=== PATIENT | female | born 1990 | race Two or more races ===

== ENCOUNTER 2017-03-15 16:55 | Observation (INO) | payer SELFPAY ==
[2017-03-15] MEDS ORDERED: PREN-96 PO (17:54)
== END 2017-03-15 17:38 | disposition home or self-care (01) | DRG 781 ==
LOC: LDRP 16:55
PROVIDERS: ADMIT Specialist; ATTEND Specialist
DX: O21.2 Late vomiting of pregnancy (principal); O26.893 Other specified pregnancy related conditions, third trimester; R42 Dizziness and giddiness; Z3A.30 30 weeks gestation of pregnancy
CPT/HCPCS: 59025; 81002; 82948; G0378

== ENCOUNTER 2024-08-26 10:41 | Inpatient (IN) | payer MEDICAID ==
[~2024-08-26] VITALS: Ht 149.9 cm; Wt 45.6 kg
[~2024-08-26 10:41] MED LIST: PREN-96 PO
--- NOTE | 2024-08-26 11:26 | ED.PDOC ---
General HPI Comments 33-year-old female who comes in with chief complaint of left lower quadrant pain. The patient was states that the pain started at 5:00 a.m. this morning. The pain is in the left flank area. The patient does have a history of kidney infections in the past and she states that the pain feels somewhat similar. At this time she states that the pain is an 8/10. It was associated with nausea as well as vomiting, diarrhea and chills. She was able to ambulate into the emergency department's without any difficulty. Chief Complaint: Abdominal Pain Time Seen by MD: 10:46 Reviewed notes: Nurses Notes, Medications, Allergies (No allergies) Allergies: Coded Allergies: NO KNOWN ALLERGIES (Unverified , 08/26/24) Home Meds Reported Medications Vit W/ Ferrous Fumara ( One Daily) Daily Tab, 1 TAB PO DAILY, #90 TAB 3 Refills 03/15/17 Information Source: Patient Mode of Arrival: Ambulatory Severity: Moderate Inability to void: None Timing: Hours (Started at 5:00 a.m. this morning) Duration: Since onset Prehospital treatment: None Onset: Spontaneous Symptoms: Hematuria History of: Other (History of pyelonephritis) Location: (L)Flank associated signs and symptoms: Abdominal Pain, Nausea, Vomiting, Hematuria, Other (Diarrhea) Past Medical History PAST MEDICAL HISTORY: Anemia Surgical History: Denies all surgeries MARGIN TRIMMER History: No Pertinent MARGIN TRIMMER History Family History Family History: Family hx of DM Social History Smoker: Non-Smoker Alcohol: Denies ETOH Use Drugs: Marijuana Lives In: Home Constitutional: denies: chills, diaphoresis, fatigue, fever, malaise, sweats, weakness, others EENTM: denies: blurred vision, double vision, ear bleeding, ear discharge, ear drainage, ear pain, ear ringing, eye pain, eye redness, hearing loss, mouth pain, mouth swelling, nasal discharge, nose bleeding, nose congestion, nose pain, photophobia, tearing, throat pain, throat swelling, voice changes, others Respiratory: denies: cough, hemoptysis, orthopnea, SOB at rest, shortness of breath, SOB with excertion, stridor, wheezing, others Cardiovascular: denies: chest pain, dizzy spells, diaphoresis, Dyspnea on exertion, edema, irregular heart beat, left arm pain, lightheadedness, palpitations, PND, syncope, others Gastrointestinal: reports: abdominal pain, diarrhea, nausea, vomiting; denies: abdomen distended, blood streaked bowels, constipated, dysphagia, difficulty swallowing, hematemesis, melena, poor appetite, poor fluid intake, rectal bleeding, rectal pain, others Genitourinary: reports: flank pain (Flank pain); denies: abnormal vagina bleeding, burning, dyspareunia, dysuria, frequency, hematuria, incontinence, pain, , vagina discharge, urgency, others Neurological: denies: dizziness, fainting, headache, left sided numbness, left sided weakness, numbness, paresthesia, pre-existing deficit, right sided numbness, right sided weakness, seizure, speech problems, tingling, tremors, weakness, others Musculoskeletal: denies: back pain, gout, joint pain, joint swelling, muscle pain, muscle stiffness, neck pain, others Integumetry: denies: bruises, change in color, change in hair/nails, dryness, laceration, lesions, lumps, rash, wounds, others Allergic/Immunocompromised: denies: Difficulty Healing, Frequent Infections, Hives, Itching, others Hematologic/Lymphatic: denies: anemia, blood clots, easy bleeding, easy bruis ing, swollen glands, others Endocrine: denies: excessive hunger, excessive sweating, excessive thirst, exc essive urination, flushing, intolerance to cold, intolerance to heat, unexplained weight gain, unexplained weight loss, others Psychiatric: denies: anxiety, bipolar disorder, depression, hopeless, panic disorder, schizophrenia, sleepless, suicidal, others Physical Exam General Appearance: Moderate Distress HEENT: Normal ENT Inspection, Pharynx Normal, TMs Normal Neck: Full Range of Motion, Non-Tender, Normal, Normal Inspection Respiratory: Chest Non-Tender, Lungs Clear, No Accessory Muscle Use, No Respiratory Distress, Normal Breath Sounds Cardiovascular: No Edema, No JVD, No Murmur, No Gallop, Normal Peripheral Puls es, Regular Rate/Rhythm Breast Exam: Deferred Gastrointestinal: LLQ, No Organomegaly, No Pulsatile Mass, Normal Bowel Sounds, Soft, Tenderness Genitalia: Deferred Pelvic: Deferred Rectal: Deferred Extremities: No calf tenderness, Normal capillary refill, Normal inspection, Normal range of motion, Non-tender, No pedal edema Musculoskeletal : Apperance: Normal Neurologic: Alert, marketing services specialist II-XII nml as Tested, No Motor Deficits, Normal Affect, Normal Mood, No Sensory Deficits Cerebellar Function: Normal Reflexes: Normal Skin: Dry, Normal Color, Warm Lymphatic: No Adenopathy Was a procedure done? Was a procedure done?: No Differential Diagnosis Kidney stone (Female): Pancreatitis, Pyelonephritis, Renal failure, Strain X-Ray, Labs, Meds, VS Vital Signs Date Time Temp Pulse Resp B/P (MAP) Pulse Ox O2 Delivery O2 Flow Rate FiO2 08/26/24 14:00 98.6 57 18 89/49 (62) 98 98.6 08/26/24 12:09 89 20 110/60 08/26/24 11:47 98.6 89 18 121/78 (92) 96 98.6 08/26/24 11:35 89 18 121/78 08/26/24 11:29 89 18 96 Room Air* 0 21 08/26/24 10:56 98.5 101 18 97/64 (75) 96 Lab Test 08/26/24 11:12 08/26/24 11:00 Range/Units White Blood Count 11.1 H 4.4-10.8 10^3/uL Red Blood Count 4.55 4.0-5.20 10^6/uL Hemoglobin 14.8 12.2-16.2 g/dL Hematocrit 43.4 36.0-46.0 % Mean Corpuscular Volume 95.4 80.0-100.0 fL Mean Corpuscular Hemoglobin 32.4 H 28.0-32.0 pg Mean Corpuscular Hemoglobin Concent 34.0 32.0-36.0 g/dL Red Cell Distribution Width 14.1 11.8-14.3 % Platelet Count 414 140-450 10^3/uL Mean Platelet Volume 8.4 6.9-10.8 fL Neutrophils (%) (Auto) 76.9 37.0-80.0 % Lymphocytes (%) (Auto) 16.3 10.0-50.0 % Monocytes (%) (Auto) 5.8 0.0-12.0 % Eosinophils (%) (Auto) 0.4 0.0-7.0 % Basophils (%) (Auto) 0.6 0.0-2.0 % Neutrophils # (Auto) 8.6 1.6-8.6 10 ^3/uL Lymphocytes # (Auto) 1.8 0.4-5.4 10 ^3/uL Monocytes # (Auto) 0.6 0-1.3 10 ^3/uL Eosinophils # (Auto) 0 0-0.8 10 ^3/uL Basophils # (Auto) 0.1 0-0.2 10 ^3/uL Nucleated Red Blood Cells 0.0 % Sodium Level 137 136-145 mmol/L Potassium Level 4.1 3.5-5.1 mmol/L Chloride Level 106 98-107 mmol/L Carbon Dioxide Level 24 20-31 mmol/L Anion Gap 7 5-15 Blood Urea Nitrogen 8 L 9-23 mg/dL Creatinine 0.98 0.550-1.02 mg/dL Glomerular Filtration Rate Calc 78 >90 mL/min BUN/Creatinine Ratio 8.2 L 10.0-20.0 Serum Glucose 120 H 74-106 mg/dL Calcium Level 10.0 8.7-10.4 mg/dL Total Bilirubin 0.4 0.2-1.0 mg/dL Aspartate Amino Transferase (AST) 13 13-40 U/L Alanine Aminotransferase (ALT) < 9 7-40 U/L Alkaline Phosphatase 84 46-116 U/L Total Protein 7.7 5.7-8.2 g/dL Albumin 4.7 3.2-4.8 g/dL Lipase 30 12-53 U/L Urine Color Light-orange Yellow Urine Clarity Turbid H Clear Urine pH 6.0 5.0-9.0 Urine Specific [place] 1.024 1.001-1.035 Urine Protein 1+ H Negative Urine Ketones Trace Negative Urine Blood 3+ H Negative /uL Urine Nitrite Negative Negative Urine Bilirubin Negative Negative Urine Urobilinogen Normal Negative mg/dL Urine Leukocyte Esterase 2+ Negative /uL Urine RBC 4356 0 - 4 /hpf Urine Microscopic WBC 53 H 0-5 /HPF Urine Squamous Epithelial Cells Mod <5 /hpf Urine Bacteria None seen None Seen /hpf Urine Mucus Few None Seen Urine Glucose Normal Normal mg/dL Urine Test Negative Negative Current Medications Medications (Trade) Dose Ordered Sig/Paty Route Start Time Stop Time Status Last Admin Ondansetron HCl (Zofran) 4 mg ONCE ONCE IV 08/26/24 11:15 08/26/24 11:16 DC 08/26/24 11:34 Sodium Chloride 1,000 ml @ 1,000 mls/hr Q1H ONCE IVB 08/26/24 11:15 08/26/24 12:14 DC 08/26/24 11:35 Morphine Sulfate 4 mg ONCE ONCE IV 08/26/24 11:15 08/26/24 11:16 DC 08/26/24 11:35 IV Hep-Lock was established The patient was given a 1 L bolus of normal saline The urine test is positive for a significant UTI There is a concern that this patient may have acute pyelonephritis. The patient's CBC shows an elevated white blood cell count of 11.[address] scan of the abdomen and pelvis shows: IMPRESSION: 1. Calculus in the bladder near the left UVJ associated with mild left hydronephrosis. Other punctate bilateral renal calculi noted. Urology evaluation is recommended. The patient received a 1 L bolus of normal saline The patient received morphine 4 mg IV push for pain The patient received Zofran 4 mg IV push for the nausea At this time, the patient will be admitted to the hospitalist Images Reviewed?: Images reviewed and evaluated by me Time of 1ST Reevaluation: 11:26 Reevaluation 1ST: Unchanged Patient Education/Counseling: Diagnosis, Treatment, Prognosis Family Education/Counseling: No Family Present Departure 1 Departure Time of Disposition: 14:39 Impression: Primary Impression: Acute pyelonephritis Additional Impressions: Ureteral calculi Intractable abdominal pain Disposition: ADMITTED INPATIENT Admit to: Med Surg Condition: Fair Critical Care Note Critical Care Time?: No Stability Stability form required: Yes Unstable for transfer: ED Physician Assesment (Clinical assesment) Heart Score Heart Score: Heart Score Response (Comments) Value History N/A 0 EKG N/A 0 Age N/A 0 Risk Factors N/A 0 Troponin N/A 0 Total 0 MACRINA NEWBERRY MD Aug 26, 2024 11:26
[2024-08-26 11:29] VITALS: PULSE 89; RESP 18; O2SAT 96
[2024-08-26] MEDS: ONDANSETRON HCL 4 MG/2 ML VIAL IV ONE (11:34)
[2024-08-26] MEDS: MORPHINE SULFATE 4 MG/ML SYR/VIAL IV ONE (11:35)
[2024-08-26] MEDS: SODIUM CHLORIDE 0.9% 1,000 ML IVB ONE (11:35)
[2024-08-26 11:44] LABS: Urine Bacteria None Seen /hpf (None Seen)
[2024-08-26 11:53] LABS: Basophils # (auto) 0.1 10 ^3/uL (0-0.2); Basophils % (auto) 0.6 % (0.0-2.0); Eosinophils # (auto) 0 10 ^3/uL (0-0.8); Eosinophils % (auto) 0.4 % (0.0-7.0); Hematocrit 43.4 % (36.0-46.0); Hemoglobin 14.8 g/dL (12.2-16.2); Lymphocytes # (auto) 1.8 10 ^3/uL (0.4-5.4); Lymphocytes % (auto) 16.3 % (10.0-50.0); Mean Corpuscular Hemoglobin 32.4 pg (28.0-32.0); Mean Corpuscular Volume 95.4 fL (80.0-100.0); Monocytes # (auto) 0.6 10 ^3/uL (0-1.3); Monocytes % (auto) 5.8 % (0.0-12.0); Neutrophils # (auto) 8.6 10 ^3/uL (1.6-8.6); Neutrophils % (auto) 76.9 % (37.0-80.0); Platelet Count (auto) 414 10^3/uL (140-450); Red Blood Cells 4.55 10^6/uL (4.0-5.20); Red Cell Distribution Width 14.1 % (11.8-14.3); White Blood Cell 11.1 10^3/uL (4.4-10.8)
[2024-08-26 12:11] LABS: Albumin 4.7 g/dL (3.2-4.8); Alkaline Phosphatase 84 U/L (46-116); Anion Gap 7 (5-15); Aspartate Aminotransferase 13 U/L (13-40); BUN/Creatinine Ratio 8.2 (10.0-20.0); Bilirubin, Total 0.4 mg/dL (0.2-1.0); Carbon Dioxide 24 mmol/L (20-31); Chloride 106 mmol/L (98-107); Lipase 30 U/L (12-53); Potassium 4.1 mmol/L (3.5-5.1); Sodium 137 mmol/L (136-145); Total Protein 7.7 g/dL (5.7-8.2)
[2024-08-26 12:25] LABS: Alanine Aminotransferase < 9 U/L (7-40); Blood Urea Nitrogen 8 mg/dL (9-23); Glucose 120 mg/dL (74-106)
[2024-08-26 12:36] LABS: Urine Blood 3+ /uL (Negative); Urine Clarity Turbid (Clear); Urine Color Light-Orange (Yellow); Urine Mucus FEW (None Seen); Urine Protein, UAD 1+ (Negative); Urine Specific Gravity 1.024 (1.001-1.035); Urine Squamous Epithelial Cell MOD /hpf (<5); Urine Urobilinogen Normal (Negative); Urine WBC 53 /HPF (0-5)
--- NOTE | 2024-08-26 13:21 | DVH ---
Exam: CT CT AB PEL WO CON-NO ORAL OR IV History: left sided pain Comparison Study: None Technique: Multidetector spiral CT of the abdomen and pelvis was performed from lung bases to pubic symphysis. Imaging was performed without IV contrast. Axial, coronal and sagittal multiplanar reform ats were obtained from the axial data set by the technologist. Radiation dose : Abdomen/Pelvis: CTDIvol 5.07 mGy, DLP 226.78 mGy*cm. Findings: Evaluation of solid organs is limited due to lack of intravenous contrast use. Lung Bases: No acute or significant lung base finding. Normal heart size. No pleural or pericardial effusion. Liver: The liver is normal in size. No focal lesions. Gallbladder and biliary Tree: Unremarkable Spleen: Unremarkable Pancreas: The pancreas is grossly normal in appearance. Adrenal Glands: Unremarkable Kidneys: Punctate bilateral renal calculi. Mild left hydronephrosis. Calculus in the bladder near t he left ureterovesicular junction. No right hydronephrosis. Bladder: Grossly unremarkable for degree of distention. Bowel: The stomach is grossly normal in appearance. Small bowel and colon are normal in caliber and d istribution. The appendix is not visualized; however, no secondary findings of acute appendicitis nayana ntified. Ascites: Absent Lymphadenopathy: No mesenteric, retroperitoneal or periportal lymphadenopathy. Abdominal wall and Mesentery: Unremarkable. Vasculature: The visualized abdominal aorta is normal in size and caliber. Evaluation of abdominal a nd pelvic vessels is limited due to lack of intravenous contrast. Pelvic Organs: Intrauterine device in place. Musculoskeletal: No aggressive focal bony lesions, acute fractures or dislocation. IMPRESSION: 1. Calculus in the bladder near the left UVJ associated with mild left hydronephrosis. Other punctate bilateral renal calculi noted. Urology evaluation is recommended. Radiation optimization: All CT scans at this facility use at least one of these dose optimization ty hniques: Automated exposure control mA and/or kV adjustment per patient size (includes targeted exams where dose is matched to clinical indication) or iterative reconstruction. HS:Y
[2024-08-26] MEDS: cefTRIAXone 1GM/50ML D5W 50 ML IV ONE (14:48)
--- NOTE | 2024-08-26 16:11 | DVHHP2 ---
Admitting Diagnosis: Abdominal pain History of Present Illness 33-year-old female who comes in with chief complaint of left lower quadrant pain. The patient was states that the pain started at 5:00 a.m. this morning. The pain is in the left flank area. The patient does have a history of kidney infections in the past and she states that the pain feels somewhat similar. At this time she states that the pain is an 8/10. It was associated with nausea as well as vomiting, diarrhea and chills. She was able to ambulate into the emergency department's without any difficulty. PAST MEDICAL HISTORY: Anemia Surgical History: Denies all surgeries CABLE STRETCHER AND TESTER History: No Pertinent CABLE STRETCHER AND TESTER History Family History: Family hx of DM Social History Smoker: Non-Smoker Alcohol: Denies ETOH Use Drugs: Marijuana Lives In: Home Allergies: Coded Allergies: NO KNOWN ALLERGIES (Unverified , 08/26/24) Home Meds Reported Medications Vit W/ Ferrous Fumara ( One Daily) Daily Tab, 1 TAB PO DAILY, #90 TAB 3 Refills 03/15/17 Vital Signs Vital Signs Date Time Temp Pulse Resp B/P (MAP) Pulse Ox O2 Delivery O2 Flow Rate FiO2 08/26/24 14:00 98.6 57 18 89/49 (62) 98 98.6 08/26/24 11:29 Room Air* 0 21 Physical Exam Generally-33 years old woman, well nourished well developed. Moderate distress HEENT-atraumatic normocephalic Heart-regular rate and rhythm Lungs clear to auscultate Abdomen soft, nontender nondistended Musculoskeletal-no edema cyanosis , no CVA tenderness Neuro-AO x3, no focal deficit Results Labs Test 08/26/24 11:12 08/26/24 11:00 Range/Units White Blood Count 11.1 H 4.4-10.8 10^3/uL Red Blood Count 4.55 4.0-5.20 10^6/uL Hemoglobin 14.8 12.2-16.2 g/dL Hematocrit 43.4 36.0-46.0 % Mean Corpuscular Volume 95.4 80.0-100.0 fL Mean Corpuscular Hemoglobin 32.4 H 28.0-32.0 pg Mean Corpuscular Hemoglobin Concent 34.0 32.0-36.0 g/dL Red Cell Distribution Width 14.1 11.8-14.3 % Platelet Count 414 140-450 10^3/uL Mean Platelet Volume 8.4 6.9-10.8 fL Neutrophils (%) (Auto) 76.9 37.0-80.0 % Lymphocytes (%) (Auto) 16.3 10.0-50.0 % Monocytes (%) (Auto) 5.8 0.0-12.0 % Eosinophils (%) (Auto) 0.4 0.0-7.0 % Basophils (%) (Auto) 0.6 0.0-2.0 % Neutrophils # (Auto) 8.6 1.6-8.6 10 ^3/uL Lymphocytes # (Auto) 1.8 0.4-5.4 10 ^3/uL Monocytes # (Auto) 0.6 0-1.3 10 ^3/uL Eosinophils # (Auto) 0 0-0.8 10 ^3/uL Basophils # (Auto) 0.1 0-0.2 10 ^3/uL Nucleated Red Blood Cells 0.0 % Sodium Level 137 136-145 mmol/L Potassium Level 4.1 3.5-5.1 mmol/L Chloride Level 106 98-107 mmol/L Carbon Dioxide Level 24 20-31 mmol/L Anion Gap 7 5-15 Blood Urea Nitrogen 8 L 9-23 mg/dL Creatinine 0.98 0.550-1.02 mg/dL Glomerular Filtration Rate Calc 78 >90 mL/min BUN/Creatinine Ratio 8.2 L 10.0-20.0 Serum Glucose 120 H 74-106 mg/dL Calcium Level 10.0 8.7-10.4 mg/dL Total Bilirubin 0.4 0.2-1.0 mg/dL Aspartate Amino Transferase (AST) 13 13-40 U/L Alanine Aminotransferase (ALT) < 9 7-40 U/L Alkaline Phosphatase 84 46-116 U/L Total Protein 7.7 5.7-8.2 g/dL Albumin 4.7 3.2-4.8 g/dL Lipase 30 12-53 U/L Urine Color Light-orange Yellow Urine Clarity Turbid H Clear Urine pH 6.0 5.0-9.0 Urine Specific [place] 1.024 1.001-1.035 Urine Protein 1+ H Negative Urine Ketones Trace Negative Urine Blood 3+ H Negative /uL Urine Nitrite Negative Negative Urine Bilirubin Negative Negative Urine Urobilinogen Normal Negative mg/dL Urine Leukocyte Esterase 2+ Negative /uL Urine RBC 4356 0 - 4 /hpf Urine Microscopic WBC 53 H 0-5 /HPF Urine Squamous Epithelial Cells Mod <5 /hpf Urine Bacteria None seen None Seen /hpf Urine Mucus Few None Seen Urine Glucose Normal Normal mg/dL Urine Test Negative Negative Primary Diagnosis Acute urinary tract infection Renal calculus with mild hydro nephrosis Plan CT of abdomen and pelvis shows no calculus with a mild hydronephrosis Urology consult Ceftriaxone 1 g daily. Follow up with the urine culture adjust antibiotic according to the ID and sensitivity IV fluids at 150 cc an hour Control Antiemetics Bowel regimen Full code Renal diet No GI prophylaxis needed Heparin for DVT prophylaxis Plan discussed with: Patient Problems List: (1) UTI (urinary tract infection) (2) Intractable abdominal pain Status: Acute (3) Ureteral calculi Status: Acute Date of Service: Aug 26, 2024 Billing Provider: JEREMY SUN MD Common Visit Codes: [id number] INP/OBS CARE (HIGH) JEREMY SUN MD Aug 26, 2024 16:10
[2024-08-26] MEDS ORDERED: ACETAMINOPHEN 325 MG TAB PO PRN (16:15)
[2024-08-26] MEDS: LACTATED RINGER'S 1,000 ML IV ONE (16:15)
--- NOTE | 2024-08-26 18:24 | DVHINCON2 ---
Date of service: Aug 26, 2024 Referring Physician Hospitalist History of Present Illness 33-year-old female who comes in with chief complaint of left lower quadrant pain. The patient was states that the pain started at 5:00 a.m. this morning. The pain is in the left flank area. The patient does have a history of kidney infections in the past and she states that the pain feels somewhat similar. At this time she states that the pain is an 8/10. It was associated with nausea as well as vomiting, diarrhea and chills. She was able to ambulate into the emergency department's without any difficulty. Past Medical History Anemia Past Surgical History Denies all surgeries COMMERCIAL REVIEW APPRAISER History: No Pertinent COMMERCIAL REVIEW APPRAISER History Allergies: Coded Allergies: NO KNOWN ALLERGIES (Unverified , 08/26/24) Home Meds Reported Medications Vit W/ Ferrous Fumara ( One Daily) Daily Tab, 1 TAB PO DAILY, #90 TAB 3 Refills 03/15/17 Current Medications Current Medications Medications (Trade) Dose Ordered Sig/Paty Route PRN Reason Start Time Stop Time Status Last Admin Sodium Chloride (Saline Lock Ns) 10 ml Q8HR IV 08/26/24 22:00 Docusate Sodium (Colace Capsule) 100 mg BIDPRN PRN PO FOR CONSTIPATION 08/26/24 16:15 Acetaminophen (Tylenol Tablet) 650 mg Q6HP PRN PO PAIN SCALE 1-3 OR TEMP>100.4 08/26/24 16:15 Acetaminophen/ Hydrocodone Bitart ([place] 5/325MG Tab) 1 tab Q4HP PRN PO MODERATE PAIN (4-6 PAIN SCALE) 08/26/24 16:15 Hydromorphone HCl (Dilaudid Injection) 0.5 mg Q4HP PRN IV SEVERE PAIN (7-10 PAIN SCALE) 08/26/24 16:15 Ondansetron HCl (Zofran) 4 mg Q4HP PRN IV NAUSEA / VOMITING 08/26/24 16:15 Ceftriaxone Sodium 50 ml @ 100 mls/hr DAILY IV 08/27/24 10:00 Review of Systems Constitutional: denies: chills, diaphoresis, fatigue, fever, malaise, sweats, weakness, others EENTM: denies: blurred vision, double vision, ear bleeding, ear discharge, ear drainage, ear pain, ear ringing, eye pain, eye redness, hearing loss, mouth pain, mouth swelling, nasal discharge, nose bleeding, nose congestion, nose pain, photophobia, tearing, throat pain, throat swelling, voice changes, others Respiratory: denies: cough, hemoptysis, orthopnea, SOB at rest, shortness of breath, SOB with excertion, stridor, wheezing, others Cardiovascular: denies: chest pain, dizzy spells, diaphoresis, Dyspnea on exertion, edema, irregular heart beat, left arm pain, lightheadedness, palpitations, PND, syncope, others Gastrointestinal: reports: abdominal pain, diarrhea, nausea, vomiting; denies: abdomen distended, blood streaked bowels, constipated, dysphagia, difficulty swallowing, hematemesis, melena, poor appetite, poor fluid intake, rectal bleeding, rectal pain, others Genitourinary: reports: flank pain (Flank pain); denies: abnormal vagina bleeding, burning, dyspareunia, dysuria, frequency, hematuria, incontinence, pain, , vagina discharge, urgency, others Neurological: denies: dizziness, fainting, headache, left sided numbness, left sided weakness, numbness, paresthesia, pre-existing deficit, right sided numbness, right sided weakness, seizure, speech problems, tingling, tremors, weakness, others Musculoskeletal: denies: back pain, gout, joint pain, joint swelling, muscle pain, muscle stiffness, neck pain, others Integumetry: denies: bruises, change in color, change in hair/nails, dryness, laceration, lesions, lumps, rash, wounds, others Allergic/Immunocompromised: denies: Difficulty Healing, Frequent Infections, Hives, Itching, others Hematologic/Lymphatic: denies: anemia, blood clots, easy bleeding, easy bruising, swollen glands, others Endocrine: denies: excessive hunger, excessive sweating, excessive thirst, excessive urination, flushing, intolerance to cold, intolerance to heat, unexplained weight gain, unexplained weight loss, others Psychiatric: denies: anxiety, bipolar disorder, depression, hopeless, panic disorder, schizophrenia, sleepless, suicidal, others Vital Signs Vital Signs Date Time Temp Pulse Resp B/P (MAP) Pulse Ox O2 Delivery O2 Flow Rate FiO2 08/26/24 15:45 97.0 78 20 96/62 (73) 98 97.0 08/26/24 11:29 Room Air* 0 21 Physical Exam General Appearance: Moderate Distress HEENT: Normal ENT Inspection, Pharynx Normal, TMs Normal Neck: Full Range of Motion, Non-Tender, Normal, Normal Inspection Respiratory: Chest Non-Tender, Lungs Clear, No Accessory Muscle Use, No Respiratory Distress, Normal Breath Sounds Cardiovascular: No Edema, No JVD, No Murmur, No Gallop, Normal Peripheral Pulses, Regular Rate/Rhythm Breast Exam: Deferred Gastrointestinal: LLQ, No Organomegaly, No Pulsatile Mass, Normal Bowel Sounds, Soft, Tenderness Genitalia: Deferred Pelvic: Deferred Rectal: Deferred Extremities: No calf tenderness, Normal capillary refill, Normal inspection, Normal range of motion, Non-tender, No pedal edema Musculoskeletal : Apperance: Normal Neurologic: Alert, photographer news II-XII nml as Tested, No Motor Deficits, Normal Affect, Normal Mood, No Sensory Deficits Cerebellar Function: Normal Reflexes: Normal Skin: Dry, Normal Color, Warm Lymphatic: No Adenopathy Labs/Diagnostic Data Labs Test 08/26/24 11:12 08/26/24 11:00 Range/Units White Blood Count 11.1 H 4.4-10.8 10^3/uL Red Blood Count 4.55 4.0-5.20 10^6/uL Hemoglobin 14.8 12.2-16.2 g/dL Hematocrit 43.4 36.0-46.0 % Mean Corpuscular Volume 95.4 80.0-100.0 fL Mean Corpuscular Hemoglobin 32.4 H 28.0-32.0 pg Mean Corpuscular Hemoglobin Concent 34.0 32.0-36.0 g/dL Red Cell Distribution Width 14.1 11.8-14.3 % Platelet Count 414 140-450 10^3/uL Mean Platelet Volume 8.4 6.9-10.8 fL Neutrophils (%) (Auto) 76.9 37.0-80.0 % Lymphocytes (%) (Auto) 16.3 10.0-50.0 % Monocytes (%) (Auto) 5.8 0.0-12.0 % Eosinophils (%) (Auto) 0.4 0.0-7.0 % Basophils (%) (Auto) 0.6 0.0-2.0 % Neutrophils # (Auto) 8.6 1.6-8.6 10 ^3/uL Lymphocytes # (Auto) 1.8 0.4-5.4 10 ^3/uL Monocytes # (Auto) 0.6 0-1.3 10 ^3/uL Eosinophils # (Auto) 0 0-0.8 10 ^3/uL Basophils # (Auto) 0.1 0-0.2 10 ^3/uL Nucleated Red Blood Cells 0.0 % Sodium Level 137 136-145 mmol/L Potassium Level 4.1 3.5-5.1 mmol/L Chloride Level 106 98-107 mmol/L Carbon Dioxide Level 24 20-31 mmol/L Anion Gap 7 5-15 Blood Urea Nitrogen 8 L 9-23 mg/dL Creatinine 0.98 0.550-1.02 mg/dL Glomerular Filtration Rate Calc 78 >90 mL/min BUN/Creatinine Ratio 8.2 L 10.0-20.0 Serum Glucose 120 H 74-106 mg/dL Calcium Level 10.0 8.7-10.4 mg/dL Total Bilirubin 0.4 0.2-1.0 mg/dL Aspartate Amino Transferase (AST) 13 13-40 U/L Alanine Aminotransferase (ALT) < 9 7-40 U/L Alkaline Phosphatase 84 46-116 U/L Total Protein 7.7 5.7-8.2 g/dL Albumin 4.7 3.2-4.8 g/dL Lipase 30 12-53 U/L Urine Color Light-orange Yellow Urine Clarity Turbid H Clear Urine pH 6.0 5.0-9.0 Urine Specific [place] 1.024 1.001-1.035 Urine Protein 1+ H Negative Urine Ketones Trace Negative Urine Blood 3+ H Negative /uL Urine Nitrite Negative Negative Urine Bilirubin Negative Negative Urine Urobilinogen Normal Negative mg/dL Urine Leukocyte Esterase 2+ Negative /uL Urine RBC 4356 0 - 4 /hpf Urine Microscopic WBC 53 H 0-5 /HPF Urine Squamous Epithelial Cells Mod <5 /hpf Urine Bacteria None seen None Seen /hpf Urine Mucus Few None Seen Urine Glucose Normal Normal mg/dL Urine Test Negative Negative PATIENT: CARLOS MANEUL WYNN ACCT: [id number] UNIT: [id number] : 1990 LOC: ER ROOM / BED: / AGE / SEX: 33 / F ADM STATUS: REG ER SERVICE 1102 ORDERING PHYSICIAN: MACRINA NEWBERRY MD PROCEDURE(s): ABPL - CT AB PEL WO CON-NO ORAL OR IV REASON: left sided pain ORDER NUMBER(s): [id number], ACCESSION NUMBER(s): [id number] Exam: CT CT AB PEL WO CON-NO ORAL OR IV History: left sided pain Comparison Study: None Technique: Multidetector spiral CT of the abdomen and pelvis was performed from lung bases to pubic symphysis. Imaging was performed without IV contrast. Axial, coronal and sagittal multiplanar reformats were obtained from the axial data set by the technologist. Radiation dose : Abdomen/Pelvis: CTDIvol 5.07 mGy, DLP 226.78 mGy*cm. Findings: Evaluation of solid organs is limited due to lack of intravenous contrast use. Lung Bases: No acute or significant lung base finding. Normal heart size. No pleural or pericardial effusion. Liver: The liver is normal in size. No focal lesions. Gallbladder and biliary Tree: Unremarkable Spleen: Unremarkable Pancreas: The pancreas is grossly normal in appearance. Adrenal Glands: Unremarkable Kidneys: Punctate bilateral renal calculi. Mild left hydronephrosis. Calculus in the bladder near the left ureterovesicular junction. No right hydronephrosis. Bladder: Grossly unremarkable for degree of distention. Bowel: The stomach is grossly normal in appearance. Small bowel and colon are normal in caliber and distribution. The appendix is not visualized; however, no secondary findings of acute appendicitis identified. Ascites: Absent Lymphadenopathy: No mesenteric, retroperitoneal or periportal lymphadenopathy. Abdominal wall and Mesentery: Unremarkable. Vasculature: The visualized abdominal aorta is normal in size and caliber. Evaluation of abdominal and pelvic vessels is limited due to lack of intravenous contrast. Pelvic Organs: Intrauterine device in place. Musculoskeletal: No aggressive focal bony lesions, acute fractures or dislocation. IMPRESSION: 1. Calculus in the bladder near the left UVJ associated with mild left hydronephrosis. Other punctate bilateral renal calculi noted. Urology evaluation is recommended. Radiation optimization: All CT scans at this facility use at least one of these dose optimization techniques: Automated exposure control mA and/or kV adjustment per patient size (includes targeted exams where dose is matched to clinical indication) or iterative reconstruction. HS:Y ATED BY: CHANCE HALL MD DICTATED DATE/TIME: 08/26/24 1318 SIGNED BY: CHANCE HALL MD SIGNED DATE/TIME: 08/26/241317 CC: Assessment Passed left ureteral stone, per CT Scan Bilateral punctate nephrolithiasis Plan/Recommendation Conservative management No acute intervention indicated F/U as outpatient Plan discussed with: Patient, Other LAVELL SUN MD Aug 26, 2024 18:24
[2024-08-26] MEDS: MANNITOL FTV 25% 12.5 GM/50 ML 50 ML IV ONE (20:43)
[2024-08-26] MEDS: SODIUM CHLOR 0.9% PF (SALINE LOCK) 10ML VIAL/SYR IV SCH (20:49)
[2024-08-26 22:05] VITALS: BP 104/71; PULSE 75; RESP 18; TEMP 97; O2SAT 99
[2024-08-26] MEDS: HYDROcodone-ACET 5/325MG TAB PO PRN (22:28)
[2024-08-27 05:00] VITALS: BP 105/61; PULSE 52; RESP 14; TEMP 97.2; O2SAT 99
[2024-08-27 05:33] LABS: Basophils # (auto) 0 10 ^3/uL (0-0.2); Basophils % (auto) 0.6 % (0.0-2.0); Eosinophils # (auto) 0.1 10 ^3/uL (0-0.8); Eosinophils % (auto) 1.1 % (0.0-7.0); Hematocrit 37.6 % (36.0-46.0); Hemoglobin 13.1 g/dL (12.2-16.2); Lymphocytes # (auto) 3.2 10 ^3/uL (0.4-5.4); Lymphocytes % (auto) 37.3 % (10.0-50.0); Mean Corpuscular Hemoglobin 33.1 pg (28.0-32.0); Mean Corpuscular Hgb Conc. 34.8 g/dL (32.0-36.0); Monocytes # (auto) 0.7 10 ^3/uL (0-1.3); Monocytes % (auto) 7.7 % (0.0-12.0); Neutrophils # (auto) 4.7 10 ^3/uL (1.6-8.6); Neutrophils % (auto) 53.3 % (37.0-80.0); Platelet Count (auto) 328 10^3/uL (140-450); Red Blood Cells 3.96 10^6/uL (4.0-5.20); Red Cell Distribution Width 13.8 % (11.8-14.3); White Blood Cell 8.7 10^3/uL (4.4-10.8)
[2024-08-27 06:03] LABS: Albumin 4.1 g/dL (3.2-4.8); Alkaline Phosphatase 72 U/L (46-116); Anion Gap 8 (5-15); BUN/Creatinine Ratio 7.6 (10.0-20.0); Calcium 9.7 mg/dL (8.7-10.4); Carbon Dioxide 23 mmol/L (20-31); Glucose 97 mg/dL (74-106); Sodium 138 mmol/L (136-145); Total Protein 6.6 g/dL (5.7-8.2)
[2024-08-27 06:04] LABS: Bilirubin, Total 0.5 mg/dL (0.2-1.0)
[2024-08-27 06:19] LABS: Alanine Aminotransferase < 9 U/L (7-40); Aspartate Aminotransferase 11 U/L (13-40); Blood Urea Nitrogen 6 mg/dL (9-23); Chloride 107 mmol/L (98-107)
[2024-08-27 08:00] VITALS: BP 106/73; PULSE 56; RESP 20; TEMP 98.3; O2SAT 99
[2024-08-27] MEDS: cefTRIAXone 1GM/50ML D5W 50 ML IV SCH (08:04)
[2024-08-27 10:40] LABS: Hepatitis B Surface Antigen Negative (Negative); Hepatitis C Antibody Negative (Negative)
--- NOTE | 2024-08-27 12:24 | DVHPN2 ---
Changes from previous H/P or p: No Changes Objective Vitals Vital Signs Date Time Temp Pulse Resp B/P (MAP) Pulse Ox O2 Delivery O2 Flow Rate FiO2 08/27/24 08:00 98.3 56 20 106/73 (84) 99 98.3 08/26/24 22:05 Room Air* 0 21 Intake/Output Intake and Output 08/27/24 07:00 Intake Total 1250 ml Balance 1250 ml Intake Oral 250 ml IV Total 1000 ml # Voids 2 Medications Current Medications Medications Dose Ordered Sig/Paty Route Start Time Stop Time Status Last Admin Dose Admin Sodium Chloride 10 ml Q8HR IV 08/26/24 22:00 08/27/24 05:46 10 ML Docusate Sodium 100 mg BIDPRN PRN PO 08/26/24 16:15 Acetaminophen 650 mg Q6HP PRN PO 08/26/24 16:15 Acetaminophen/ Hydrocodone Bitart 1 tab Q4HP PRN PO 08/26/24 16:15 08/27/24 08:33 1 TAB Hydromorphone HCl 0.5 mg Q4HP PRN IV 08/26/24 16:15 Ondansetron HCl 4 mg Q4HP PRN IV 08/26/24 16:15 Ceftriaxone Sodium 50 ml @ 100 mls/hr DAILY IV 08/27/24 10:00 08/27/24 08:04 100 MLS/HR Laboratory Results Laboratory Tests 08/27/24 04:57 Chemistry Test 08/27/24 04:57 Albumin 4.1 g/dL (3.2-4.8) Calcium Level 9.7 mg/dL (8.7-10.4) Total Protein 6.6 g/dL (5.7-8.2) LFT Test 08/27/24 04:57 Alanine Aminotransferase (ALT) < 9 U/L (7-40) Alkaline Phosphatase 72 U/L (46-116) Aspartate Amino Transferase (AST) 11 U/L (13-40) L Total Bilirubin 0.5 mg/dL (0.2-1.0) Urinalysis Test 08/26/24 11:00 Urine Color Light-orange (Yellow) Urine Clarity Turbid (Clear) H Urine pH 6.0 (5.0-9.0) Urine Specific [place] 1.024 (1.001-1.035) Urine Protein 1+ (Negative) H Urine Ketones Trace (Negative) Urine Blood 3+ /uL (Negative) H Urine Nitrite Negative (Negative) Urine Bilirubin Negative (Negative) Urine Urobilinogen Normal mg/dL (Negative) Urine Leukocyte Esterase 2+ /uL (Negative) Urine RBC 4356 /hpf (0 - 4) Urine Microscopic WBC 53 /HPF (0-5) H Urine Squamous Epithelial Cells Mod /hpf (<5) Urine Bacteria None seen /hpf (None Seen) Urine Mucus Few (None Seen) Urine Glucose Normal mg/dL (Normal) Urine Test Negative (Negative) Labs and/or images reviewed: Labs reviewed by me, Image(s) reviewed by me Assessment/Plan Assessment/Plan Acute Left flank pain Left UVJ stone possibly passed, urology consult by Dr. Valadez appreciated advised conservative management UTI: Urine cultures Rocephin Plan discussed with: Patient Date of Service: Aug 27, 2024 Billing Provider: YANNI ZAVALETA MD Common Visit Codes: [id number] INP/OBS CARE(HIGH) YANNI ZAVALETA MD Aug 27, 2024 12:24
[2024-08-27] MEDS: SODIUM CHLORIDE 0.9% 1,000 ML IV SCH (13:00)
[2024-08-27 14:30] VITALS: BP 110/68; PULSE 52; RESP 18; TEMP 97.3; O2SAT 96
[2024-08-27] MEDS: TAMSULOSIN HYDROCHLORIDE 0.4 MG CAP PO ONE (16:14)
[2024-08-27 17:00] VITALS: BP 92/54; PULSE 58; RESP 16; TEMP 98.6; O2SAT 98
--- NOTE | 2024-08-27 17:05 | DVHPN2 ---
Progress Note - Dictate Date Seen: Aug 27, 2024 Has the PT tested + for MRSA If YES, has PT been informed?: No Medical Necessity Reason Pt with a Central, PICC or Fol: No Medical Necessity Reason Despite CT scan report of passing a stone into the bladder, she is having significant pain on the left side and rates it six on a scale of 1-10 Subjective Left lower quadrant pain vital signs Vital Sign Date Time Temp Pulse Resp B/P (MAP) Pulse Ox O2 Delivery O2 Flow Rate FiO2 08/27/24 15:00 Room Air* 0 21 08/27/24 14:30 97.3 52 18 110/68 (82) 96 97.3 Total Intake and Output 08/26/24 08/26/24 08/27/24 15:00 23:00 07:00 Intake Total 1000 ml 250 ml Balance 1000 ml 250 ml medications Current Medications Medications Dose Ordered Sig/Paty Route Start Time Stop Time Status Last Admin Dose Admin Sodium Chloride 10 ml Q8HR IV 08/26/24 22:00 08/27/24 13:04 10 ML Docusate Sodium 100 mg BIDPRN PRN PO 08/26/24 16:15 Acetaminophen 650 mg Q6HP PRN PO 08/26/24 16:15 Acetaminophen/ Hydrocodone Bitart 1 tab Q4HP PRN PO 08/26/24 16:15 08/27/24 16:15 1 TAB Hydromorphone HCl 0.5 mg Q4HP PRN IV 08/26/24 16:15 Ondansetron HCl 4 mg Q4HP PRN IV 08/26/24 16:15 Ceftriaxone Sodium 50 ml @ 100 mls/hr DAILY IV 08/27/24 10:00 08/27/24 08:04 100 MLS/HR Sodium Chloride 1,000 ml @ 150 mls/hr Q6H40M IV 08/27/24 13:00 08/27/24 13:00 150 MLS/HR Tamsulosin HCl 0.4 mg QPM PO 08/27/24 18:00 laboratory and microbiology Laboratory Tests 08/27/24 04:57 Test 08/27/24 04:57 Range/Units Serum Glucose 97 74-106 mg/dL Assessment/Plan Passed left ureteral stone, per CT Scan Bilateral punctate nephrolithiasis Left lower quadrant pain CT urogram to be ordered Dietary Evaluation Review Comments: 1) Regular diet 2) Ensure Enlive 8fl oz BID 3) Continue current plan of care Expected Outcomes/Goals: Pt will meet >75% estimated needs Fu 3-5 days Plan discussed with: Patient, Other LAVELL SUN MD Aug 27, 2024 17:05
[2024-08-27] MEDS: MANNITOL FTV 25% 12.5 GM/50 ML 50 ML IV ONE (17:51)
[2024-08-27] MEDS: TAMSULOSIN HYDROCHLORIDE 0.4 MG CAP PO SCH (18:22)
[2024-08-27 21:00] VITALS: BP 93/53; PULSE 58; RESP 18; TEMP 98; O2SAT 98
[2024-08-28] MEDS: ONDANSETRON HCL 4 MG/2 ML VIAL IV PRN (00:06)
[2024-08-28 01:00] VITALS: BP 91/48; PULSE 52; RESP 20; TEMP 98; O2SAT 98
[2024-08-28 05:00] VITALS: BP 93/46; PULSE 52; RESP 17; TEMP 97.4; O2SAT 99
[2024-08-28 06:20] LABS: Basophils # (auto) 0.1 10 ^3/uL (0-0.2); Basophils % (auto) 0.7 % (0.0-2.0); Eosinophils # (auto) 0.1 10 ^3/uL (0-0.8); Eosinophils % (auto) 1.3 % (0.0-7.0); Hematocrit 36.1 % (36.0-46.0); Hemoglobin 12.2 g/dL (12.2-16.2); Lymphocytes % (auto) 43.1 % (10.0-50.0); Mean Corpuscular Hemoglobin 32.2 pg (28.0-32.0); Mean Corpuscular Hgb Conc. 33.8 g/dL (32.0-36.0); Mean Corpuscular Volume 95.4 fL (80.0-100.0); Monocytes # (auto) 0.5 10 ^3/uL (0-1.3); Monocytes % (auto) 7.8 % (0.0-12.0); Neutrophils # (auto) 3.2 10 ^3/uL (1.6-8.6); Neutrophils % (auto) 47.1 % (37.0-80.0); Nucleated Red Blood Cells % 0.1 %; Platelet Count (auto) 254 10^3/uL (140-450); Red Blood Cells 3.79 10^6/uL (4.0-5.20); Red Cell Distribution Width 13.7 % (11.8-14.3); White Blood Cell 6.9 10^3/uL (4.4-10.8)
[2024-08-28 06:28] LABS: Alkaline Phosphatase 57 U/L (46-116); Anion Gap 8 (5-15); Carbon Dioxide 23 mmol/L (20-31); Glucose 78 mg/dL (74-106); Potassium 3.8 mmol/L (3.5-5.1); Sodium 140 mmol/L (136-145)
[2024-08-28 06:29] LABS: Albumin 3.4 g/dL (3.2-4.8); Bilirubin, Total 0.5 mg/dL (0.2-1.0)
[2024-08-28 06:32] LABS: Alanine Aminotransferase < 9 U/L (7-40); Aspartate Aminotransferase 8 U/L (13-40); Blood Urea Nitrogen 6 mg/dL (9-23); Calcium 8.7 mg/dL (8.7-10.4); Chloride 109 mmol/L (98-107); Total Protein 5.5 g/dL (5.7-8.2)
[2024-08-28] MEDS: IOHEXOL 300 MG/ML 100ML BOTTLE IJ ONE (06:46)
--- NOTE | 2024-08-28 08:39 | DVHPN2 ---
Reviewed: Care Plan, H&P, Labs, Medications, Previous Orders, Radiology Changes from previous H/P or p: No Changes Objective Vitals Vital Signs Date Time Temp Pulse Resp B/P (MAP) Pulse Ox O2 Delivery O2 Flow Rate FiO2 08/28/24 05:00 97.4 52 17 93/46 (62) 99 97.4 08/27/24 19:50 Room Air* 0 21 Intake/Output Intake and Output 08/28/24 07:00 Intake Total 2370 ml Balance 2370 ml Intake Oral 320 ml IV Total 2050 ml # Voids 6 Medications Current Medications Medications Dose Ordered Sig/Paty Route Start Time Stop Time Status Last Admin Dose Admin Sodium Chloride 10 ml Q8HR IV 08/26/24 22:00 08/28/24 06:17 10 ML Docusate Sodium 100 mg BIDPRN PRN PO 08/26/24 16:15 Acetaminophen 650 mg Q6HP PRN PO 08/26/24 16:15 Acetaminophen/ Hydrocodone Bitart 1 tab Q4HP PRN PO 08/26/24 16:15 08/28/24 06:16 1 TAB Hydromorphone HCl 0.5 mg Q4HP PRN IV 08/26/24 16:15 Ondansetron HCl 4 mg Q4HP PRN IV 08/26/24 16:15 08/28/24 06:16 4 MG Ceftriaxone Sodium 50 ml @ 100 mls/hr DAILY IV 08/27/24 10:00 08/27/24 08:04 100 MLS/HR Sodium Chloride 1,000 ml @ 150 mls/hr Q6H40M IV 08/27/24 13:00 08/28/24 06:16 150 MLS/HR Tamsulosin HCl 0.4 mg QPM PO 08/27/24 18:00 08/27/24 18:22 0.4 MG Laboratory Results Laboratory Tests 08/28/24 05:18 Chemistry Test 08/28/24 05:18 Albumin 3.4 g/dL (3.2-4.8) Calcium Level 8.7 mg/dL (8.7-10.4) Total Protein 5.5 g/dL (5.7-8.2) L LFT Test 08/28/24 05:18 Alanine Aminotransferase (ALT) < 9 U/L (7-40) Alkaline Phosphatase 57 U/L (46-116) Aspartate Amino Transferase (AST) 8 U/L (13-40) L Total Bilirubin 0.5 mg/dL (0.2-1.0) Urinalysis Test 08/26/24 11:00 Urine Color Light-orange (Yellow) Urine Clarity Turbid (Clear) H Urine pH 6.0 (5.0-9.0) Urine Specific [place] 1.024 (1.001-1.035) Urine Protein 1+ (Negative) H Urine Ketones Trace (Negative) Urine Blood 3+ /uL (Negative) H Urine Nitrite Negative (Negative) Urine Bilirubin Negative (Negative) Urine Urobilinogen Normal mg/dL (Negative) Urine Leukocyte Esterase 2+ /uL (Negative) Urine RBC 4356 /hpf (0 - 4) Urine Microscopic WBC 53 /HPF (0-5) H Urine Squamous Epithelial Cells Mod /hpf (<5) Urine Bacteria None seen /hpf (None Seen) Urine Mucus Few (None Seen) Urine Glucose Normal mg/dL (Normal) Urine Test Negative (Negative) Labs and/or images reviewed: Labs reviewed by me, Image(s) reviewed by me Assessment/Plan Assessment/Plan Acute Left flank pain Left UVJ stone possibly passed, urology consult by Dr. Valadez appreciated advised conservative management UTI: Urine cultures pending, continue Rocephin CT urogram result pending Plan discussed with: Patient My Orders Orders - YANNI ZAVALETA MD Procedure Category Date Status Time Urine Bacterial LUZ MARIA 08/27/24 In Process Culture 12:22 Sodium Chloride 0.9% PHA 08/27/24 In Process 13:00 Tamsulosin PHA 08/27/24 In Process Hydrochloride (Flomax) 18:00 Date of Service: Aug 28, 2024 Billing Provider: YANNI ZAVALETA MD Common Visit Codes: [id number] INP/OBS CARE(HIGH) YANNI ZAVALETA MD Aug 28, 2024 08:39
--- NOTE | 2024-08-28 09:26 | DVH ---
CLINICAL INFORMATION: 33 years old, Female; LEFT DISTAL UVJ STONE. TECHNIQUE: Axial CT images of the abdomen and pelvis were obtained after the uneventful administrati on of 90 mL Omnipaque 300 IV contrast. Coronal and sagittal reformatted images were obtained, reviewe d, and stored. All CT scans at this medical facility are performed using dose modulation techniques a s appropriate to a performed exam including the following: Automated exposure control was utilized; a djustment of the MA and/or KV according to patient size; and use of iterative reconstruction techniqu e. CTDIvol = 5.07 mGy DLP = 212.46 mGy-cm COMPARISON: Noncontrast enhanced CT dated 08/26/2024 FINDINGS: Lung bases: Lung bases are clear. Liver: Hepatic steatosis. Biliary: Layering density in the dependent portions of the gallbladder, may be due to sludge and/ or small gallstones. Mildly distended gallbladder. Spleen: Unremarkable. Pancreas: Unremarkable. No inflammatory changes, ductal dilatation, or mass identified. Adrenal glands: Unremarkable. No mass. Kidneys: Previously seen mild left hydronephrosis is not visualized on today's exam. Aorta/Vascular: No aneurysm or significant calcification. Retroperitoneum: No mass or lymphadenopathy. Bowel/mesentery: Nonspecific nondilated fluid-filled small bowel loops. No small bowel obstruction. Appendix is visualized and appears unremarkable. Scattered colonic diverticula without adjacent infl ammatory changes to suggest diverticulitis. Moderate stool in the colon. Pelvic organs: Retroverted uterus. IUD in the fundal endometrial canal. Bladder: Calculus at the left ureterovesical junction appears stable, measuring 4 mm. Abdominal wall: No mass or hernia. Bones: No acute fracture or focal intraosseous lesion. IMPRESSION: 1. Stable 4 mm calculus at the left ureterovesical junction previously seen mild left hydronephrosis is not visualized on today's exam. 2. Layering density in the gallbladder, may be due to sludge and/ or small gallstones. Mildly distend ed gallbladder. Correlate with clinical findings. If clinically indicated, ultrasound could be ob[place]i del[place]. 3. Hepatic steatosis. 4. Scattered colonic diverticula without adjacent inflammatory changes to suggest diverticulitis. 5. Nonspecific nondilated fluid-filled small bowel loops. Findings may be seen with ileus or enteriti s in the appropriate clinical setting. No small bowel obstruction.
[2024-08-28 09:58] VITALS: BP 105/51; PULSE 53; RESP 15; TEMP 97.9; O2SAT 97
[2024-08-28 14:25] VITALS: BP 112/72; PULSE 57; RESP 15; TEMP 98; O2SAT 96
[2024-08-28] MEDS: HYDROmorphone HCL 2 MG/ML VL/or syr IV PRN (16:38)
[2024-08-28 17:00] VITALS: BP 126/75; PULSE 55; RESP 15; TEMP 97.8; O2SAT 98
[2024-08-28 21:00] VITALS: BP 137/70; PULSE 58; RESP 18; TEMP 97.9; O2SAT 97
[2024-08-29] VITALS (7 sets, daily range): BP systolic 95–115; BP diastolic 41–75; PULSE 55–76; RESP 16–22; TEMP 97.3–98; O2SAT 91–100
[2024-08-29 06:53] LABS: Basophils # (auto) 0 10 ^3/uL (0-0.2); Basophils % (auto) 0.7 % (0.0-2.0); Eosinophils # (auto) 0.1 10 ^3/uL (0-0.8); Eosinophils % (auto) 1.1 % (0.0-7.0); Hematocrit 35.9 % (36.0-46.0); Hemoglobin 12.4 g/dL (12.2-16.2); Lymphocytes # (auto) 2.3 10 ^3/uL (0.4-5.4); Lymphocytes % (auto) 34.1 % (10.0-50.0); Mean Corpuscular Hemoglobin 33.1 pg (28.0-32.0); Mean Corpuscular Hgb Conc. 34.6 g/dL (32.0-36.0); Mean Corpuscular Volume 95.6 fL (80.0-100.0); Monocytes # (auto) 0.5 10 ^3/uL (0-1.3); Monocytes % (auto) 7.6 % (0.0-12.0); Neutrophils # (auto) 3.8 10 ^3/uL (1.6-8.6); Neutrophils % (auto) 56.5 % (37.0-80.0); Nucleated Red Blood Cells % 0.2 %; Platelet Count (auto) 248 10^3/uL (140-450); Red Blood Cells 3.75 10^6/uL (4.0-5.20); Red Cell Distribution Width 13.8 % (11.8-14.3); White Blood Cell 6.7 10^3/uL (4.4-10.8)
[2024-08-29 07:13] LABS: Albumin 3.5 g/dL (3.2-4.8); Alkaline Phosphatase 61 U/L (46-116); Anion Gap 10 (5-15); BUN/Creatinine Ratio 9.5 (10.0-20.0); Potassium 3.8 mmol/L (3.5-5.1); Sodium 139 mmol/L (136-145); Total Protein 5.7 g/dL (5.7-8.2)
[2024-08-29 07:14] LABS: Alanine Aminotransferase < 9 U/L (7-40); Aspartate Aminotransferase 9 U/L (13-40); Bilirubin, Total 0.4 mg/dL (0.2-1.0); Blood Urea Nitrogen 7 mg/dL (9-23); Calcium 8.6 mg/dL (8.7-10.4); Carbon Dioxide 20 mmol/L (20-31); Chloride 109 mmol/L (98-107); Glucose 51 mg/dL (74-106)
[2024-08-29] MEDS: DOCUSATE SOD 100 MG CAP PO PRN (08:53)
--- NOTE | 2024-08-29 09:11 | DVHPN2 ---
Reviewed: Care Plan, H&P, Labs, Medications, Previous Orders, Radiology Changes from previous H/P or p: No Changes Objective Vitals Vital Signs Date Time Temp Pulse Resp B/P (MAP) Pulse Ox O2 Delivery O2 Flow Rate FiO2 08/29/24 08:00 70 18 100 Room Air* 0 21 08/29/24 07:42 128/74 08/29/24 05:00 98.0 98.0 Intake/Output Intake and Output 08/29/24 07:00 Intake Total 3525 ml Balance 3525 ml Intake Oral 900 ml IV Total 2625 ml # Voids 3 Medications Current Medications Medications Dose Ordered Sig/Paty Route Start Time Stop Time Status Last Admin Dose Admin Sodium Chloride 10 ml Q8HR IV 08/26/24 22:00 08/29/24 05:37 10 ML Docusate Sodium 100 mg BIDPRN PRN PO 08/26/24 16:15 08/29/24 08:53 100 MG Acetaminophen 650 mg Q6HP PRN PO 08/26/24 16:15 Acetaminophen/ Hydrocodone Bitart 1 tab Q4HP PRN PO 08/26/24 16:15 08/29/24 08:53 1 TAB Hydromorphone HCl 0.5 mg Q4HP PRN IV 08/26/24 16:15 08/29/24 07:12 0.5 MG Ondansetron HCl 4 mg Q4HP PRN IV 08/26/24 16:15 08/29/24 07:10 4 MG Ceftriaxone Sodium 50 ml @ 100 mls/hr DAILY IV 08/27/24 10:00 08/29/24 08:53 100 MLS/HR Sodium Chloride 1,000 ml @ 150 mls/hr Q6H40M IV 08/27/24 13:00 08/29/24 05:36 150 MLS/HR Tamsulosin HCl 0.4 mg QPM PO 08/27/24 18:00 08/28/24 18:35 0.4 MG Laboratory Results Laboratory Tests 08/29/24 06:16 Chemistry Test 08/29/24 06:16 Albumin 3.5 g/dL (3.2-4.8) Calcium Level 8.6 mg/dL (8.7-10.4) L Total Protein 5.7 g/dL (5.7-8.2) LFT Test 08/29/24 06:16 Alanine Aminotransferase (ALT) < 9 U/L (7-40) Alkaline Phosphatase 61 U/L (46-116) Aspartate Amino Transferase (AST) 9 U/L (13-40) L Total Bilirubin 0.4 mg/dL (0.2-1.0) Urinalysis Test 08/26/24 11:00 Urine Color Light-orange (Yellow) Urine Clarity Turbid (Clear) H Urine pH 6.0 (5.0-9.0) Urine Specific [place] 1.024 (1.001-1.035) Urine Protein 1+ (Negative) H Urine Ketones Trace (Negative) Urine Blood 3+ /uL (Negative) H Urine Nitrite Negative (Negative) Urine Bilirubin Negative (Negative) Urine Urobilinogen Normal mg/dL (Negative) Urine Leukocyte Esterase 2+ /uL (Negative) Urine RBC 4356 /hpf (0 - 4) Urine Microscopic WBC 53 /HPF (0-5) H Urine Squamous Epithelial Cells Mod /hpf (<5) Urine Bacteria None seen /hpf (None Seen) Urine Mucus Few (None Seen) Urine Glucose Normal mg/dL (Normal) Urine Test Negative (Negative) Microbiology Microbiology Date/Time Source Procedure Growth Status 08/27/24 12:52 Voided Urine Urine Culture - Preliminary Resulted Labs and/or images reviewed: Labs reviewed by me, Image(s) reviewed by me Assessment/Plan Assessment/Plan Acute Left flank pain 4 mm left UVJ stone still persists, patient is still complaining of pain and nausea. Will request Urology Dr. Valadez to re-evaluate UTI: Urine cultures pending, continue Rocephin Plan discussed with: Patient Date of Service: Aug 29, 2024 Billing Provider: YANNI ZAVALETA MD Common Visit Codes: [id number] INP/OBS CARE(HIGH) YANNI ZAVALETA MD Aug 29, 2024 09:11
[2024-08-29] MEDS: MANNITOL FTV 25% 12.5 GM/50 ML 50 ML IV ONE (14:01)
--- NOTE | 2024-08-29 16:13 | DVHPN2 ---
Progress Note - Dictate Date Seen: Aug 29, 2024 Has the PT tested + for MRSA If YES, has PT been informed?: No Medical Necessity Reason Pt with a Central, PICC or Fol: No Medical Necessity Reason Left abdominal pain Subjective Left lower quadrant pain vital signs Vital Sign Date Time Temp Pulse Resp B/P (MAP) Pulse Ox O2 Delivery O2 Flow Rate FiO2 08/29/24 13:00 98.0 66 16 107/50 (69) 91 98.0 08/29/24 08:00 Room Air* 0 21 Total Intake and Output 08/28/24 08/28/24 08/29/24 15:00 23:00 07:00 Intake Total 50 ml 1975 ml 1500 ml Balance 50 ml 1975 ml 1500 ml medications Current Medications Medications Dose Ordered Sig/Paty Route Start Time Stop Time Status Last Admin Dose Admin Sodium Chloride 10 ml Q8HR IV 08/26/24 22:00 08/29/24 12:18 10 ML Docusate Sodium 100 mg BIDPRN PRN PO 08/26/24 16:15 08/29/24 08:53 100 MG Acetaminophen 650 mg Q6HP PRN PO 08/26/24 16:15 Acetaminophen/ Hydrocodone Bitart 1 tab Q4HP PRN PO 08/26/24 16:15 08/29/24 08:53 1 TAB Hydromorphone HCl 0.5 mg Q4HP PRN IV 08/26/24 16:15 08/29/24 12:19 0.5 MG Ondansetron HCl 4 mg Q4HP PRN IV 08/26/24 16:15 08/29/24 12:19 4 MG Ceftriaxone Sodium 50 ml @ 100 mls/hr DAILY IV 08/27/24 10:00 08/29/24 08:53 100 MLS/HR Sodium Chloride 1,000 ml @ 150 mls/hr Q6H40M IV 08/27/24 13:00 08/29/24 12:17 150 MLS/HR Tamsulosin HCl 0.4 mg QPM PO 08/27/24 18:00 08/28/24 18:35 0.4 MG objective PATIENT: CARLOS MANUEL WYNN ACCT: [id number] UNIT: [id number] : 1990 [facility] / A AGE / SEX: 33 / F ADM STATUS: ADM IN SERVICE 0734 ORDERING PHYSICIAN: LAVELL SUN MD PROCEDURE(s): ABPLIV - CT AB PEL WITH IV CON ONLY REASON: LEFT DISTAL UVJ STONE ORDER NUMBER(s): [id number], ACCESSION NUMBER(s): [id number] CLINICAL INFORMATION: 33 years old, Female; LEFT DISTAL UVJ STONE. TECHNIQUE: Axial CT images of the abdomen and pelvis were obtained after the uneventful administration of 90 mL Omnipaque 300 IV contrast. Coronal and sagittal reformatted images were obtained, reviewed, and stored. All CT scans at this medical facility are performed using dose modulation techniques as appropriate to a performed exam including the following: Automated exposure control was utilized; adjustment of the MA and/or KV according to patient size; and use of iterative reconstruction technique. CTDIvol = 5.07 mGy DLP = 212.46 mGy-cm COMPARISON: Noncontrast enhanced CT dated 08/26/2024 FINDINGS: Lung bases: Lung bases are clear. Liver: Hepatic steatosis. Biliary: Layering density in the dependent portions of the gallbladder, may be due to sludge and/ or small gallstones. Mildly distended gallbladder. Spleen: Unremarkable. Pancreas: Unremarkable. No inflammatory changes, ductal dilatation, or mass identified. Adrenal glands: Unremarkable. No mass. Kidneys: Previously seen mild left hydronephrosis is not visualized on today's exam. Aorta/Vascular: No aneurysm or significant calcification. Retroperitoneum: No mass or lymphadenopathy. Bowel/mesentery: Nonspecific nondilated fluid-filled small bowel loops. No small bowel obstruction. Appendix is visualized and appears unremarkable. Scattered colonic diverticula without adjacent inflammatory changes to suggest diverticulitis. Moderate stool in the colon. Pelvic organs: Retroverted uterus. IUD in the fundal endometrial canal. Bladder: Calculus at the left ureterovesical junction appears stable, measuring 4 mm. Abdominal wall: No mass or hernia. Bones: No acute fracture or focal intraosseous lesion. IMPRESSION: 1. Stable 4 mm calculus at the left ureterovesical junction previously seen mild left hydronephrosis is not visualized on today's exam. 2. Layering density in the gallbladder, may be due to sludge and/ or small gallstones. Mildly distended gallbladder. Correlate with clinical findings. If clinically indicated, ultrasound could be obtained. 3. Hepatic steatosis. 4. Scattered colonic diverticula without adjacent inflammatory changes to suggest diverticulitis. 5. Nonspecific nondilated fluid-filled small bowel loops. Findings may be seen with ileus or enteritis in the appropriate clinical setting. No small bowel obstruction. ATED BY: GIOVANNI HILLIARD DO DICTATED DATE/TIME: 08/28/24922 SIGNED BY: GIOVANNI HILLIARD DO SIGNED DATE/TIME: 08/28/24922 CC: laboratory and microbiology Laboratory Tests 08/29/24 06:16 Test 08/29/24 06:16 Range/Units Serum Glucose 51 L 74-106 mg/dL Assessment/Plan Passed left ureteral stone, per CT Scan Bilateral punctate nephrolithiasis Left lower quadrant pain CT urogram shows no obstructive uropathy Pain management Will consider cystoscopy with left RPG and ureteroscopy if pain persistent Dietary Evaluation Review Comments: 1) Regular diet 2) Ensure Enlive 8fl oz BID 3) Continue current plan of care Expected Outcomes/Goals: Pt will meet >75% estimated needs Fu 3-5 days Plan discussed with: LAVELL Salas MD Aug 29, 2024 16:13
[2024-08-30 01:00] VITALS: BP 115/59; PULSE 71; RESP 18; TEMP 97.7; O2SAT 97
[2024-08-30 05:00] VITALS: BP 132/61; PULSE 58; RESP 18; TEMP 97.7; O2SAT 97
[2024-08-30 07:04] LABS: Basophils # (auto) 0 10 ^3/uL (0-0.2); Basophils % (auto) 0.5 % (0.0-2.0); Eosinophils # (auto) 0.1 10 ^3/uL (0-0.8); Eosinophils % (auto) 1.3 % (0.0-7.0); Hematocrit 35.9 % (36.0-46.0); Hemoglobin 12.4 g/dL (12.2-16.2); Mean Corpuscular Hemoglobin 32.5 pg (28.0-32.0); Mean Corpuscular Hgb Conc. 34.6 g/dL (32.0-36.0); Mean Corpuscular Volume 93.9 fL (80.0-100.0); Monocytes # (auto) 0.5 10 ^3/uL (0-1.3); Monocytes % (auto) 7.8 % (0.0-12.0); Neutrophils # (auto) 3.3 10 ^3/uL (1.6-8.6); Neutrophils % (auto) 47.4 % (37.0-80.0); Nucleated Red Blood Cells % 0.1 %; Platelet Count (auto) 284 10^3/uL (140-450); Red Blood Cells 3.83 10^6/uL (4.0-5.20); Red Cell Distribution Width 13.7 % (11.8-14.3); White Blood Cell 6.9 10^3/uL (4.4-10.8)
[2024-08-30 07:20] LABS: Albumin 3.5 g/dL (3.2-4.8); Alkaline Phosphatase 63 U/L (46-116); Anion Gap 8 (5-15); Calcium 8.8 mg/dL (8.7-10.4); Carbon Dioxide 23 mmol/L (20-31); Glucose 79 mg/dL (74-106); Potassium 3.8 mmol/L (3.5-5.1); Sodium 140 mmol/L (136-145)
[2024-08-30 07:22] LABS: Alanine Aminotransferase < 9 U/L (7-40); Aspartate Aminotransferase 9 U/L (13-40); BUN/Creatinine Ratio 6.2 (10.0-20.0); Bilirubin, Total 0.3 mg/dL (0.2-1.0); Blood Urea Nitrogen < 5 mg/dL (9-23); Chloride 109 mmol/L (98-107); Total Protein 5.7 g/dL (5.7-8.2)
[2024-08-30 08:00] VITALS: PULSE 72; RESP 18; O2SAT 100
[2024-08-30] MEDS ORDERED: CIPR-173 PO (08:45)
[2024-08-30] MEDS ORDERED: TRAM-626 PO (08:45)
--- NOTE | 2024-08-30 08:45 | DVHPN2 ---
Reviewed: Care Plan, H&P, Labs, Medications, Previous Orders, Radiology Changes from previous H/P or p: No Changes Objective Vitals Vital Signs Date Time Temp Pulse Resp B/P (MAP) Pulse Ox O2 Delivery O2 Flow Rate FiO2 08/30/24 05:00 97.7 58 18 132/61 (84) 97 97.7 08/29/24 20:00 Room Air* 0 21 Intake/Output Intake and Output 08/30/24 07:00 Intake Total 900 ml Balance 900 ml Intake Oral 900 ml # Voids 8 Medications Current Medications Medications Dose Ordered Sig/Paty Route Start Time Stop Time Status Last Admin Dose Admin Sodium Chloride 10 ml Q8HR IV 08/26/24 22:00 08/30/24 05:02 10 ML Docusate Sodium 100 mg BIDPRN PRN PO 08/26/24 16:15 08/29/24 08:53 100 MG Acetaminophen 650 mg Q6HP PRN PO 08/26/24 16:15 Acetaminophen/ Hydrocodone Bitart 1 tab Q4HP PRN PO 08/26/24 16:15 08/29/24 22:19 1 TAB Hydromorphone HCl 0.5 mg Q4HP PRN IV 08/26/24 16:15 08/29/24 12:19 0.5 MG Ondansetron HCl 4 mg Q4HP PRN IV 08/26/24 16:15 08/29/24 12:19 4 MG Ceftriaxone Sodium 50 ml @ 100 mls/hr DAILY IV 08/27/24 10:00 08/29/24 08:53 100 MLS/HR Sodium Chloride 1,000 ml @ 150 mls/hr Q6H40M IV 08/27/24 13:00 08/29/24 17:39 150 MLS/HR Tamsulosin HCl 0.4 mg QPM PO 08/27/24 18:00 08/29/24 17:39 0.4 MG Laboratory Results Laboratory Tests 08/30/24 06:05 Chemistry Test 08/30/24 06:05 Albumin 3.5 g/dL (3.2-4.8) Calcium Level 8.8 mg/dL (8.7-10.4) Total Protein 5.7 g/dL (5.7-8.2) LFT Test 08/30/24 06:05 Alanine Aminotransferase (ALT) < 9 U/L (7-40) Alkaline Phosphatase 63 U/L (46-116) Aspartate Amino Transferase (AST) 9 U/L (13-40) L Total Bilirubin 0.3 mg/dL (0.2-1.0) Urinalysis Test 08/26/24 11:00 Urine Color Light-orange (Yellow) Urine Clarity Turbid (Clear) H Urine pH 6.0 (5.0-9.0) Urine Specific [place] 1.024 (1.001-1.035) Urine Protein 1+ (Negative) H Urine Ketones Trace (Negative) Urine Blood 3+ /uL (Negative) H Urine Nitrite Negative (Negative) Urine Bilirubin Negative (Negative) Urine Urobilinogen Normal mg/dL (Negative) Urine Leukocyte Esterase 2+ /uL (Negative) Urine RBC 4356 /hpf (0 - 4) Urine Microscopic WBC 53 /HPF (0-5) H Urine Squamous Epithelial Cells Mod /hpf (<5) Urine Bacteria None seen /hpf (None Seen) Urine Mucus Few (None Seen) Urine Glucose Normal mg/dL (Normal) Urine Test Negative (Negative) Microbiology Microbiology Date/Time Source Procedure Growth Status 08/27/24 12:52 Voided Urine Urine Culture - Final Complete Labs and/or images reviewed: Labs reviewed by me, Image(s) reviewed by me Assessment/Plan Assessment/Plan Acute Left flank pain 4 mm left UVJ stone, patient says she passed the stone yesterday and now has a no pain and wants to go home UTI: Urine cultures negative, continue Rocephin Dr. Valadez was planning for cystoscopy at 3:00 p.m. today if the symptoms still persist, but the patient has no symptoms. Plan discussed with: Patient Date of Service: Aug 30, 2024 Billing Provider: YANNI ZAVALETA MD Common Visit Codes: 45200-[id number] INP/OBS CARE(HIGH) YANNI ZAVALETA MD Aug 30, 2024 08:44
--- NOTE | 2024-08-30 08:50 | DVHDS2 ---
Discharge Summary Date of Admission Aug 26, 2024 at 16:06 Date of Discharge: Aug 30, 2024 Admitting Diagnosis Left flank pain Wounds: None Labs/Diagnostic Data: Laboratory Results Test 08/30/24 06:05 08/27/24 04:57 08/26/24 11:12 08/26/24 11:00 White Blood Count 6.9 10^3/uL (4.4-10.8) Red Blood Count 3.83 10^6/uL (4.0-5.20) Hemoglobin 12.4 g/dL (12.2-16.2) Hematocrit 35.9 % (36.0-46.0) Mean Corpuscular Volume 93.9 fL (80.0-100.0) Mean Corpuscular Hemoglobin 32.5 pg (28.0-32.0) Mean Corpuscular Hemoglobin Concent 34.6 g/dL (32.0-36.0) Red Cell Distribution Width 13.7 % (11.8-14.3) Platelet Count 284 10^3/uL (140-450) Mean Platelet Volume 8.4 fL (6.9-10.8) Neutrophils (%) (Auto) 47.4 % (37.0-80.0) Lymphocytes (%) (Auto) 43.0 % (10.0-50.0) Monocytes (%) (Auto) 7.8 % (0.0-12.0) Eosinophils (%) (Auto) 1.3 % (0.0-7.0) Basophils (%) (Auto) 0.5 % (0.0-2.0) Neutrophils # (Auto) 3.3 10 ^3/uL (1.6-8.6) Lymphocytes # (Auto) 3.0 10 ^3/uL (0.4-5.4) Monocytes # (Auto) 0.5 10 ^3/uL (0-1.3) Eosinophils # (Auto) 0.1 10 ^3/uL (0-0.8) Basophils # (Auto) 0 10 ^3/uL (0-0.2) Nucleated Red Blood Cells 0.1 % Sodium Level 140 mmol/L (136-145) Potassium Level 3.8 mmol/L (3.5-5.1) Chloride Level 109 mmol/L (98-107) Carbon Dioxide Level 23 mmol/L (20-31) Anion Gap 8 (5-15) Blood Urea Nitrogen < 5 mg/dL (9-23) Creatinine 0.81 mg/dL (0.550-1.02) Glomerular Filtration Rate Calc 98 mL/min (>90) BUN/Creatinine Ratio 6.2 (10.0-20.0) Serum Glucose 79 mg/dL (74-106) Calcium Level 8.8 mg/dL (8.7-10.4) Total Bilirubin 0.3 mg/dL (0.2-1.0) Aspartate Amino Transferase (AST) 9 U/L (13-40) Alanine Aminotransferase (ALT) < 9 U/L (7-40) Alkaline Phosphatase 63 U/L (46-116) Total Protein 5.7 g/dL (5.7-8.2) Albumin 3.5 g/dL (3.2-4.8) Hepatitis B Surface Antigen Negative (Negative) Hepatitis C Antibody Negative (Negative) Lipase 30 U/L (12-53) Urine Color Light-orange (Yellow) Urine Clarity Turbid (Clear) Urine pH 6.0 (5.0-9.0) Urine Specific [place] 1.024 (1.001-1.035) Urine Protein 1+ (Negative) Urine Ketones Trace (Negative) Urine Blood 3+ /uL (Negative) Urine Nitrite Negative (Negative) Urine Bilirubin Negative (Negative) Urine Urobilinogen Normal mg/dL (Negative) Urine Leukocyte Esterase 2+ /uL (Negative) Urine RBC 4356 /hpf (0 - 4) Urine Microscopic WBC 53 /HPF (0-5) Urine Squamous Epithelial Cells Mod /hpf (<5) Urine Bacteria None seen /hpf (None Seen) Urine Mucus Few (None Seen) Urine Glucose Normal mg/dL (Normal) Urine Test Negative (Negative) Other Laboratory Tests 08/30/24 06:05 Brief Hx & Hospital Course: 33-year-old female came in for left flank pain found to have 4 mm left UVJ stone treated with the IV fluids pain medications patient passed the stone and now symptom-free UTI treated with Rocephin urine cultures and negative patient wants to go home. Discharged home on Cipro for UTI and tramadol for the pain. Urology consult by Dr. Valadez appreciated Consults/Reason for consult Neurology Dr. Valadez Operations or Procedures CT abdomen pelvis without contrast Condition at Discharge: Fair Final Diagnosis/Problems List Acute Left flank pain 4 mm left UVJ stone, patient says she passed the stone yesterday and now has a no pain and wants to go home UTI: Urine cultures negative, continue Rocephin Discharge Disposition: Home Discharge Instruct/Medications Diet: Regular Activity: Light activity Follow Up/Referral: Use medications as prescribed Follow up with your primary Dr Mckeon (Time taken for discharge summary 36 minute) Discharge Statement: "Patient was advised to return to the ER or call 911 if any headaches, dizziness, shortness of breath, chest pain, abdominal pain, bleeding, fevers, or worsening of medical condition. Patient was counseled about treatment plan, medications, possible side effects, patientverbalized understanding. All questions were answered to the best of my ability. This discharge took greater then 30 minutes in planning, reviewing documentation, counseling the patient, and discussing with other team members." ASSESSMENT ASSESSMENT Hospital Course Uneventful Assessment Acute Left flank pain 4 mm left UVJ stone, patient says she passed the stone yesterday and now has a no pain and wants to go home UTI: Urine cultures negative, continue Rocephin Date of Service: Aug 30, 2024 Billing Provider: YANNI ZAVALETA MD Common Visit Codes: 89509-GNC/OBS DISCH DAY >30min YANNI ZAVALETA MD Aug 30, 2024 08:50
[2024-08-30 09:00] VITALS: BP 108/67; PULSE 58; RESP 16; TEMP 98.2; O2SAT 98
[2024-08-30 11:04] VITALS: TEMP 36.8
== END 2024-08-30 13:20 | disposition home or self-care (01) | DRG 463 ==
LOC: ER 10:41 → OVERFLOW 16:06 → EAST 08-27 14:23
PROVIDERS: ADMIT Family Medicine; ATTEND Family Medicine
DX: N13.6 Pyonephrosis (principal); K76.0 Fatty (change of) liver, not elsewhere classified; K57.30 Diverticulosis of large intestine without perforation or abscess without bleeding; N21.0 Calculus in bladder; Z83.3 Family history of diabetes mellitus; Z87.442 Personal history of urinary calculi; Z79.899 Other long term (current) drug therapy; R63.6 Underweight; Z68.20 Body mass index [BMI] 20.0-20.9, adult
CPT/HCPCS: 36415; 74176; 74177; 80053; 81001; 81025; 83690; 85025; 86803; 87086; 87340; 96365; 96375; G0378; J2405

== ENCOUNTER 2025-04-13 10:20 | Emergency (ER) | payer MEDICAID ==
[~2025-04-13] VITALS: Ht 154.9 cm; Wt 41.3 kg
[~2025-04-13 10:20] MED LIST changes: +CIPR-173 PO; -PREN-96 PO; +TRAM-626 PO
--- NOTE | 2025-04-13 11:09 | ED.PDOC ---
History of Present Illness(SKN HPI Comments 34 year old female with PMHx CKD stage 1, anemia presents to the ED with a chief complaint of insect bite onset 2 days. Patient states she believes she experienced spider bite to Rt arm, since then she has been experiencing pain, swelling, redness around area. Pain worsens with palpation, movement. She is also experiencing chills and sweats. No other symptoms or modifying factors present at this time. Bite occurred Denies history of immunocompromise (HIV hep B hep C) Denies fever Denies chest pain shortness of breath dizziness Denies headache blurred vision Denies numbness/tingling Denies nausea vomiting diarrhea Chief Complaint: Insect Bite Time Seen by MD: 10:50 History of Present Illness: Medications, Allergies Allergies: Coded Allergies: NO KNOWN ALLERGIES (Unverified , 08/26/24) Home Meds Active Scripts Tramadol HCl (Tramadol HCl) 50 Mg Tab, 50 MG PO QID PRN, #20 TAB Prov:YANNI ZAVALETA MD 08/30/24 Ciprofloxacin Hcl (Cipro) 500 Mg Tab, 1 TAB PO BID, #20 TAB Prov:YANNI ZAVALETA MD 08/30/24 Information Source: Patient Mode of Arrival: Ambulatory Severity: Moderate Timing: Days Duration: Since onset Prehospital treatment: None Location: Arm Mechanism: Spider Developed: Other Occurence: Indoors Object: Other Condition of Object: None Retained Foreign Body: Unknown Wound Type: Other Immunization Status of Animal: NA History of: None Associated Signs and Symptoms: Redness, Swelling Past Medical History PAST MEDICAL HISTORY: Anemia, CKF Surgical History: Denies all surgeries CHEMICAL TREATMENT OPERATOR History: No Pertinent CHEMICAL TREATMENT OPERATOR History Family History Family History: Family hx of DM Social History Smoker: Non-Smoker Alcohol: Denies ETOH Use Drugs: Marijuana Lives In: Home All Other Systems: Reviewed and Negative (as per HPI) Physical Exam General Appearance: Normal HEENT: Normal ENT Inspection, Pharynx Normal, TMs Normal Neck: Full Range of Motion, Non-Tender, Normal, Normal Inspection Respiratory: Chest Non-Tender, Lungs Clear, No Accessory Muscle Use, No Respiratory Distress, Normal Breath Sounds Cardiovascular: No Edema, No JVD, No Murmur, No Gallop, Normal Peripheral Pulses, Regular Rate/Rhythm Breast Exam: Deferred Gastrointestinal: No Organomegaly, Non Tender, No Pulsatile Mass, Normal Bowel Sounds, Soft Genitalia: Deferred Pelvic: Deferred Rectal: Deferred Extremities: No calf tenderness, Normal capillary refill Musculoskeletal : Location: Right Extremity Location: Arm (5 x 5 cm tender nodule with localized eryhthema, firm to palpation, no fluctuance, no discharge, no streaking ) Apperance: Normal Neurologic: Alert, joint finisher II-XII nml as Tested, No Motor Deficits, Normal Affect, Normal Mood, No Sensory Deficits Cerebellar Function: Normal Reflexes: Normal Skin: Dry, Normal Color, Warm Lymphatic: No Adenopathy Was a procedure done? Was a procedure done?: No X-Ray, Labs, Meds, VS Vital Signs Date Time Temp Pulse Resp B/P (MAP) Pulse Ox O2 Delivery O2 Flow Rate FiO2 04/13/25 10:22 97.5 83 19 103/69 99 97.5 Lab Test 04/13/25 11:41 Range/Units White Blood Count 12.7 H 4.4-10.8 10^3/uL Red Blood Count 4.29 4.0-5.20 10^6/uL Hemoglobin 13.5 12.2-16.2 g/dL Hematocrit 40.9 36.0-46.0 % Mean Corpuscular Volume 95.3 80.0-100.0 fL Mean Corpuscular Hemoglobin 31.5 28.0-32.0 pg Mean Corpuscular Hemoglobin Concent 33.1 32.0-36.0 g/dL Red Cell Distribution Width 13.9 11.8-14.3 % Platelet Count 416 140-450 10^3/uL Mean Platelet Volume 7.8 6.9-10.8 fL Neutrophils (%) (Auto) 76.2 37.0-80.0 % Lymphocytes (%) (Auto) 17.9 10.0-50.0 % Monocytes (%) (Auto) 5.1 0.0-12.0 % Eosinophils (%) (Auto) 0.5 0.0-7.0 % Basophils (%) (Auto) 0.3 0.0-2.0 % Neutrophils # (Auto) 9.7 H 1.6-8.6 10 ^3/uL Lymphocytes # (Auto) 2.3 0.4-5.4 10 ^3/uL Monocytes # (Auto) 0.7 0-1.3 10 ^3/uL Eosinophils # (Auto) 0.1 0-0.8 10 ^3/uL Basophils # (Auto) 0 0-0.2 10 ^3/uL Nucleated Red Blood Cells 0.1 % Sodium Level 137 136-145 mmol/L Potassium Level 4.2 3.5-5.1 mmol/L Chloride Level 104 98-107 mmol/L Carbon Dioxide Level 26 20-31 mmol/L Anion Gap 7 5-15 Blood Urea Nitrogen 6 L 9-23 mg/dL Creatinine 0.79 0.550-1.02 mg/dL Glomerular Filtration Rate Calc 101 >90 mL/min BUN/Creatinine Ratio 7.6 L 10.0-20.0 Serum Glucose 90 74-106 mg/dL Calcium Level 9.4 8.7-10.4 mg/dL X-Ray, Labs, Meds, VS Comment 34 year old female with PMHx CKD stage 1, anemia presents to the ED with a chief complaint of insect bite onset 2 days. Patient arrives alert and oriented, ABC's intact, afebrile, vital signs stable, saturating well in room air labs were ordered. CBC was ordered to exclude anemia, blood loss, or infection. BMP was ordered to exclude electrolyte abnormalities, renal failure, dehydration, hyperglycemia Labs in the ED showed (pertinent+ and then pertinent-) Patient was given:_. Tolerated medications with no adverse reaction. Additional MDM Review of External, Non-ED records: External records reviewed. Discussion with independent historian (EMS, family) history obtained from the patient/parents (if applicable) at bedside Chronic conditions affecting care: CKD stage 1, anemia Social determinants of health affecting care: None Consideration of admission (observation or admission): I considered escalation of care to admission for this patient, however given the reassuring workup, the patient is safe for outpatient management. On reevaluation, patient had symptomatic improvement. Patient is stable for discharge at this time. External notes reviewed. Test results and diagnostic imaging interpreted. All diagnostic findings, discharge care, education and instructions provided Follow-up with PCP in 2 to 3 days Patient verbalized understanding and agreed to treatment plan Vital signs stable, afebrile, no acute distress noted Patient ambulatory with strong steady gait Advised to return precautions for any new or worsening symptoms, return to ER immediately for re-evaluation Patient is aware that the purpose of this visit was for an acute medical emergency requiring emergent stabilization. Chronic conditions, including malignancies have not been ruled out. Patient is instructed to follow up with PCP as directed and discharge instructions for continued care and workup. If unable to arrange follow-up, patient is to return to the emergency department for reassessment. Patient (parent or legal guardian if applicable) was given verbal and written discharge instructions and acknowledges understanding. Time of 1ST Reevaluation: 11:20 Reevaluation 1ST: Improved Patient Education/Counseling: Diagnosis, Treatment Family Education/Counseling: No Family Present SEPSIS Sepsis Screen Date sepsis recognized/suspect: Apr 13, 2025 Time Sepsis recognized/suspect: 1022 Recent Procedure: No On Antibiotic Therapy: No Respiratory Rate >20: No Heart Rate >90: No Temp<36 C (96.8 F) or >38.3 C: No SBP <90 or MAP <65 mmHG: No New Acute Mental Status Change: No Is the patient on CPAP, BIPAP,: No Physician Orders Ceftriaxone Sodium (Rocephin) (04/13/25 12:45) Hydrocodone-Acet 7.5/325mg Tab ([place] 7. (04/13/25 12:45) Vital Signs Date Time Temp Pulse Resp B/P (MAP) Pulse Ox O2 Delivery O2 Flow Rate FiO2 04/13/25 10:22 97.5 83 19 103/69 99 97.5 Laboratory Tests Test 04/13/25 11:41 White Blood Count 12.7 10^3/uL (4.4-10.8) H Departure 1 Departure Time of Disposition: 12:41 Impression: Primary Impression: Epidermoid cyst Disposition: 01 HOME / SELF CARE / HOMELESS Condition: Stable e-Prescriptions Cephalexin Monohydrate (Cephalexin) 500 Mg Tab 1 TAB PO QID for 7 Days, #28 TAB 0 Refills Prov: ABHISHEK BLANCHARD NP 04/13/25 Ibuprofen Micronized (Ibuprofen) 800 Mg Tab 800 MG PO Q8HP PRN for 10 Days, #30 TAB 0 Refills Prov: ABHISHEK BLANCHARD NP 04/13/25 Discharged With: Relative Critical Care Note Critical Care Time?: No Stability Stability form required: No Heart Score Heart Score: Heart Score Response (Comments) Value History N/A 0 EKG N/A 0 Age N/A 0 Risk Factors N/A 0 Troponin N/A 0 Total 0 I personally scribed for ABHISHEK BLANCHARD NP ([email or web address]) on 04/13/25 at 11:09. Electronically submitted by Luz Rolle ([email or web address]). ABHISHEK BLANCHARD NP Apr 13, 2025 11:09
[2025-04-13 12:07] LABS: Hematocrit 40.9 % (36.0-46.0); Hemoglobin 13.5 g/dL (12.2-16.2); Mean Corpuscular Hemoglobin 31.5 pg (28.0-32.0); Mean Corpuscular Volume 95.3 fL (80.0-100.0); Nucleated Red Blood Cells % 0.1 %
[2025-04-13 12:14] LABS: Chloride 104 mmol/L (98-107); Potassium 4.2 mmol/L (3.5-5.1); Sodium 137 mmol/L (136-145)
[2025-04-13 12:15] LABS: Anion Gap 7 (5-15); Calcium 9.4 mg/dL (8.7-10.4); Carbon Dioxide 26 mmol/L (20-31)
[2025-04-13 12:20] LABS: BUN/Creatinine Ratio 7.6 (10.0-20.0); Blood Urea Nitrogen 6 mg/dL (9-23); Glucose 90 mg/dL (74-106)
[2025-04-13] MEDS ORDERED: IBUP-1455 PO (12:44)
[2025-04-13] MEDS ORDERED: CEPH500T PO (12:44)
[2025-04-13] MEDS: HYDROcodone-ACET 7.5/325MG TAB PO ONE (12:52)
[2025-04-13] MEDS: cefTRIAXone SOD 1,000 MG VL IM ONE (12:53)
[2025-04-13 13:01] VITALS: BP 116/78; PULSE 74; RESP 16; TEMP 99.1; O2SAT 98
== END 2025-04-13 13:10 | disposition home or self-care (01) ==
LOC: ER 10:20
DX: S40.861A Insect bite (nonvenomous) of right upper arm, initial encounter (principal); L72.0 Epidermal cyst; N18.1 Chronic kidney disease, stage 1; W57.XXXA Bitten or stung by nonvenomous insect and other nonvenomous arthropods, initial encounter; Y93.89 Activity, other specified; Y92.89 Other specified places as the place of occurrence of the external cause; Y99.8 Other external cause status
CPT/HCPCS: 36415; 80048; 85025; 96372; 99283; J0696

== ENCOUNTER 2025-04-18 01:57 | Emergency (ER) | payer MEDICAID ==
[~2025-04-18] VITALS: Ht 147.3 cm; Wt 43.0 kg
[~2025-04-18 01:57] MED LIST changes: +CEPH500T PO; +IBUP-1455 PO
[2025-04-18 03:15] VITALS: BP 103/55; PULSE 73; RESP 17; TEMP 97.9; O2SAT 100
[2025-04-18] MEDS: HYDROcodone-ACET 5/325MG TAB PO ONE (03:15)
[2025-04-18] MEDS: cefTRIAXone SOD 1,000 MG VL IM ONE (03:15)
--- NOTE | 2025-04-18 03:35 | DVH ---
CLINICAL INDICATION: OPEN WOUND WITH BONE AND MUSCLE EXPOSURE RIGHT ANTERIOR BOLANOS TECHNIQUE: XY R TIB FIB XRAY Comparison: None FINDINGS/IMPRESSION: : There is no evidence of acute fracture or dislocation. Soft tissues are unremarkable.
[2025-04-18] MEDS ORDERED: DOXY100C4 PO (03:46)
--- NOTE | 2025-04-18 03:47 | ED.PDOC ---
History of Present Illness(SKN HPI Comments Pt presents with cc of possible insect bite on left lower leg. Pt states the bite occurred 1 week ago. She has been trying to take care of it at home, but this evening, when she was bathing, the bite opened up. There is an approximately 1-2 cm open wound on pt's left lower leg. Pt reports pain is currently a 9/10. Denies fever, chills, nausea, vomiting, chest pain, shortness breath, leg pain, or diarrhea. Chief Complaint: Wound Check Time Seen by MD: 02:02 History of Present Illness: Nurses Notes, Medications, Allergies Allergies: Coded Allergies: NO KNOWN ALLERGIES (Unverified , 08/26/24) Home Meds Active Scripts Doxycycline Hyclate (Doxycycline Hyclate) 100 Mg Cap, 100 MG PO BID for 10 Days, #20 CAP Prov:ELVAARVIND ATHLETIC COACH 04/18/25 Ibuprofen Micronized (Ibuprofen) 800 Mg Tab, 800 MG PO Q8HP PRN for 10 Days, #30 TAB 0 Refills Prov:ABHISHEK BLANCHARD MACHINE OPERATOR PICKER 04/13/25 Tramadol HCl (Tramadol HCl) 50 Mg Tab, 50 MG PO QID PRN, #20 TAB Prov:YANNI ZAVALETA MD 08/30/24 Ciprofloxacin Hcl (Cipro) 500 Mg Tab, 1 TAB PO BID, #20 TAB Prov:YANNI ZAVALETA MD 08/30/24 Information Source: Patient Mode of Arrival: Ambulatory Past Medical History PAST MEDICAL HISTORY: Anemia, CKF Surgical History: Denies all surgeries FILTERING MACHINE TENDER HELPER History: No Pertinent FILTERING MACHINE TENDER HELPER History Family History Family History: Family hx of DM Social History Smoker: Non-Smoker Alcohol: Denies ETOH Use Drugs: Marijuana Lives In: Home All Other Systems: Reviewed and Negative (see hpi) Physical Exam General Appearance: No Apparent Distress, Normal HEENT: Pharynx Normal Neck: Full Range of Motion, Non-Tender Respiratory: Lungs Clear, No Respiratory Distress, Normal Breath Sounds Cardiovascular: No Murmur, Normal Peripheral Pulses, Regular Rate/Rhythm Breast Exam: Deferred Gastrointestinal: Non Tender, Soft Genitalia: Deferred Pelvic: Deferred Rectal: Deferred Extremities: Normal range of motion, No pedal edema Musculoskeletal : Location: Right Extremity Location: Leg (Tenderness trace edema over right anterior bradford) Apperance: Normal Neurologic: Alert, No Motor Deficits, Normal Affect, Normal Mood, No Sensory Deficits Cerebellar Function: Normal Reflexes: NOT DONE Skin: Dry, Normal Color, Warm, Wounds (2 cm open wound left anterior bradford with surrounding erythema no noted drainage moderate tenderness on palpation. No obvious foreign body. Approximate 1/2 inch by 1/2 inch open wound right armpit with granulating tissue no noted drainage trace erythema) Lymphatic: No Adenopathy Was a procedure done? Was a procedure done?: No Differential Diagnosis (INTG) Differential Diagnosis: Cellulitis Differential Diagnosis: Abscess X-Ray, Labs, Meds, VS Vital Signs Date Time Temp Pulse Resp B/P (MAP) Pulse Ox O2 Delivery O2 Flow Rate FiO2 04/18/25 03:15 97.9 73 17 103/55 (71) 100 97.9 04/18/25 03:15 73 17 100 Room Air 04/18/25 01:59 98.0 98 18 101/71 97 98.0 Current Medications Medications (Trade) Dose Ordered Sig/Paty Route Start Time Stop Time Status Last Admin Ceftriaxone Sodium (Rocephin) 1,000 mg ONCE ONCE IM 04/18/25 02:15 04/18/25 02:16 DC 04/18/25 03:15 X-Ray, Labs, Meds, VS Comment Wounds cleansed and dressed. Advised patient to stop Keflex script trial of doxycycline likely MRSA. Patient given Rocephin 1 g IM. Advised to can use 800 mg ibuprofen as prescribed. Advised to call Saturday schedule an appointment with her PCP and consider wound nurse home visits if symptoms persist. Advised on ER return precautions patient indicates understanding and agrees with discharge plan of care. Images Reviewed?: Images reviewed and evaluated by me Time of 1ST Reevaluation: 02:02 Reevaluation 1ST: Unchanged Time of 2ND Reevaluation: 03:35 Reevaluation 2ND: Improved Patient Education/Counseling: Diagnosis, Treatment, Need For Follow Up Family Education/Counseling: No Family Present SEPSIS Sepsis Screen Date sepsis recognized/suspect: Apr 18, 2025 Time Sepsis recognized/suspect: 020 Recent Procedure: No On Antibiotic Therapy: No Respiratory Rate >20: No Heart Rate >90: Yes Temp<36 C (96.8 F) or >38.3 C: No SBP <90 or MAP <65 mmHG: No New Acute Mental Status Change: No Is the patient on CPAP, BIPAP,: No Physician Orders R Tib Fib Xray (04/18/25 02:56) Vital Signs Date Time Temp Pulse Resp B/P (MAP) Pulse Ox O2 Delivery O2 Flow Rate FiO2 04/18/25 03:15 97.9 73 17 103/55 (71) 100 97.9 04/18/25 03:15 73 17 100 Room Air 04/18/25 01:59 98.0 98 18 101/71 97 98.0 Medications Medications Dose Ordered Sig/Paty Route Start Time Stop Time Status Last Admin Dose Admin Ceftriaxone Sodium 1,000 mg ONCE ONCE IM 04/18/25 02:15 04/18/25 02:16 DC 04/18/25 03:15 Departure 1 Departure Time of Disposition: 03:41 Impression: Primary Impression: Wound infection Disposition: 01 HOME / SELF CARE / HOMELESS Condition: Stable e-Prescriptions Doxycycline Hyclate (Doxycycline Hyclate) 100 Mg Cap 100 MG PO BID for 10 Days, #20 CAP Prov: ARVIND STEVENSON 04/18/25 Discharged With: Self Critical Care Note Critical Care Time?: No Stability Stability form required: ARVIND Charles Apr 18, 2025 03:46
== END 2025-04-18 04:10 | disposition home or self-care (01) ==
LOC: ER 01:57
DX: L08.9 Local infection of the skin and subcutaneous tissue, unspecified (principal); F12.90 Cannabis use, unspecified, uncomplicated; Z79.899 Other long term (current) drug therapy
CPT/HCPCS: 73590; 96372; 99283; J0696